=== PATIENT | male | born 1950 | race Hispanic/Latino ===

== ENCOUNTER → 2024-02-13 | Outpatient (CLI) | payer OTHER ==
[2024-02-13 08:30] LABS: BASOPHILS # (AUTO) 0.04 K/uL (0.00-0.20); BASOPHILS % (AUTO) 0.5 % (0.0-5.0); EOSINOPHILS # (AUTO) 0.07 K/uL (0.00-0.70); EOSINOPHILS % (AUTO) 0.9 % (0.0-8.0); HEMATOCRIT 43.8 % (42-54); IMMATURE GRANULOCYTE ABSOLUTE 0.07 K/uL (0-1); LYMPHOCYTES # (AUTO) 2.1 K/uL (1.0-4.8); LYMPHOCYTES % (AUTO) 24.9 % (21.0-51.0); MEAN CORPUSCULAR HEMOGLOBIN 29.3 pg (27.0-33.0); MEAN CORPUSCULAR HGB CONC 32.6 g/dL (32.0-36.0); MEAN CORPUSCULAR VOLUME 89.8 fL (79-99); MONOCYTES # (AUTO) 0.6 K/uL (0.1-1.0); MONOCYTES % (AUTO) 7.3 % (3.0-13.0); NEUTROPHILS # (AUTO) 5.4 K/uL (1.8-7.7); NEUTROPHILS % (AUTO) 65.5 % (40.0-77.0); PLATELET COUNT (AUTO) 154 K/uL (130-400); RED BLOOD CELL COUNT(AUTO) 4.88 MIL/uL (4.50-6.20); WHITE BLOOD COUNT (AUTO) 8.2 K/uL (4.8-10.8)
[2024-02-13 08:51] LABS: ALBUMIN 4.1 g/dL (3.5-5.0); BILIRUBIN,TOTAL 0.7 mg/dL (0.2-1.0); CREATININE 0.8 mg/dL (0.5-1.3); POTASSIUM 4.5 mmol/L (3.5-5.1); TOTAL PROTEIN, SERUM 7.4 g/dL (6.0-8.3)
== END | disposition home or self-care (01) ==
LOC: LAB 07:34
PROVIDERS: ATTEND Internal Medicine
DX: R10.32 Left lower quadrant pain (principal)
CPT/HCPCS: 36415; 80053; 85025

== ENCOUNTER → 2024-02-16 | Outpatient (CLI) | payer OTHER ==
[~2024-02-16] MED LIST: IOHEXOL 350 MG/ML 100ML INFUS..BTL IV ONE
== END | disposition home or self-care (01) ==
LOC: RAH 08:59
PROVIDERS: ATTEND Internal Medicine
DX: K57.30 Diverticulosis of large intestine without perforation or abscess without bleeding (principal); K40.20 Bilateral inguinal hernia, without obstruction or gangrene, not specified as recurrent; N32.89 Other specified disorders of bladder; I70.90 Unspecified atherosclerosis; M47.815 Spondylosis without myelopathy or radiculopathy, thoracolumbar region; R10.32 Left lower quadrant pain
CPT/HCPCS: 74178; Q9967

== ENCOUNTER 2025-02-15 06:32 | Day surgery (SDC) | payer OTHER ==
--- NOTE | 2025-02-09 10:09 | NUR ---
PATIENT CANCELLED DUE TO NO TRANSPORTATION HOME AFTER PROCEDURE
[~2025-02-15] VITALS: Ht 165.1 cm; Wt 90.7 kg
[2025-02-15] VITALS (11 sets, daily range): BP systolic 117–151; BP diastolic 49–68; PULSE 60–68; RESP 14–18; TEMP 97.3–98.4
[~2025-02-15 06:32] MED LIST changes: +0.9%NACL 1000ML 1,000 ML IV ONE; -IOHEXOL 350 MG/ML 100ML INFUS..BTL IV ONE
[2025-02-15] MEDS: 0.9%NACL 1000ML 1,000 ML IV ONE (07:42)
[2025-02-15] MEDS ORDERED: GABA-1555 PO (10:36)
[2025-02-15] MEDS ORDERED: ATOR40TA69 PO (10:36)
[2025-02-15] MEDS ORDERED: LOSA50TA64 PO (10:36)
== END 2025-02-15 11:01 | disposition home or self-care (01) ==
LOC: ENDO 06:32 → DAH 06:32 → ENDO 11:01
PROVIDERS: ATTEND Internal Medicine Gastroenterology
DX: K86.2 Cyst of pancreas (principal); J44.9 Chronic obstructive pulmonary disease, unspecified; I10 Essential (primary) hypertension; F41.9 Anxiety disorder, unspecified; E78.5 Hyperlipidemia, unspecified; R14.0 Abdominal distension (gaseous); K57.30 Diverticulosis of large intestine without perforation or abscess without bleeding; K76.0 Fatty (change of) liver, not elsewhere classified; R93.89 Abnormal findings on diagnostic imaging of other specified body structures; E66.01 Morbid (severe) obesity due to excess calories; Z80.0 Family history of malignant neoplasm of digestive organs; Z68.33 Body mass index [BMI] 33.0-33.9, adult; Z98.890 Other specified postprocedural states; Z79.899 Other long term (current) drug therapy
CPT/HCPCS: 43242; J7030 ×2; J0690; J2704 ×2; A4620; A4215 ×2; J3490